=== PATIENT | female | born 1960 | race Caucasian/White ===

== ENCOUNTER → 2018-03-25 | Outpatient (CLI) | payer BC ==
--- NOTE | 2018-03-25 15:15 | CT ---
EXAMINATION TYPE: CT chest w con DATE OF EXAM: 03/25/2018 COMPARISON: Chest x-ray from 2 weeks ago. HISTORY: Occasional shortness of breath per patient. Mid intermittent asthma per order. CT DLP: 268.1 mGycm Automated exposure control for dose reduction was used. CONTRAST: CT scan of the chest is performed with IV Contrast, patient injected with 100 mL of Isovue 300. FINDINGS: LUNGS: Some dependent atelectasis is seen in both lower lobes. No suspicious consolidation or ground glass opacity is seen. No concerning parenchymal nodule or mass is identified. There is no pleural ef fusion or pneumothorax seen. The tracheobronchial tree is patent. MEDIASTINUM: There are no greater than 1 cm hilar or mediastinal lymph nodes. No cardiomegaly or pe ricardial effusion is seen. OTHER: No additional significant abnormality is seen. IMPRESSION: No suspicious acute or chronic pulmonary process.
== END | disposition home or self-care (01) ==
LOC: RADCTMAIN 11:57
PROVIDERS: ATTEND Internal Medicine
DX: J45.20 Mild intermittent asthma, uncomplicated (principal); R94.2 Abnormal results of pulmonary function studies
CPT/HCPCS: 71260; Q9967

== ENCOUNTER 2018-04-17 10:24 | Day surgery (SDC) | payer BC ==
[2018-04-16 09:00] VITALS: BMI 25.8
[~2018-04-17 10:24] MED LIST: LACTATED RINGERS 1,000 ML IV SCH; Pre Op ABX Message 1 EACH MISC MISCELLANE ONE
[2018-04-17 11:50] VITALS: TEMP 98
[2018-04-17] MEDS ORDERED: LIDOCAINE 1% 20 ML VIAL (10MG/ML) FOR IV START INTRADERMA ONE (11:51)
[2018-04-17] MEDS ORDERED: LIDOCAINE 1% INJ 10MG/ML (20 ML MDV) ONE (12:01)
[2018-04-17] MEDS ORDERED: MIDAZOLAM 2 MG/2 ML VIAL ONE (12:01)
[2018-04-17] MEDS ORDERED: PROPOFOL 10 MG/ML 20 ML VIAL IV ONE (12:01)
[2018-04-17] MEDS ORDERED: KETAMINE 10 MG/ML 20 ML VIAL ONE (12:01)
[2018-04-17] MEDS ORDERED: LIDOCAINE 2% INJ 20 MG/ML INTRATRACH ONE (12:30)
[2018-04-17 13:02] VITALS: BP 114/63; PULSE 58; RESP 18
[2018-04-17 16:29] LABS: Appearance,BF Hazy; Color,BF Colorless
--- NOTE | 2018-04-17 17:24 | PCN ---
PROCEDURE NOTE PROCEDURE PERFORMED: Bronchoscopy and right middle lobe washing. PREOPERATIVE DIAGNOSIS: Chronic cough and abnormal flow volume loop. ANESTHESIA USED: IV conscious sedation, please refer to [employer] REPRESENT[employer]IVE documentation. PROCEDURE: Patient was prepared according to the bronchoscopy protocol. O2 was applied via nasal cannula. We monitored her O2 saturation continuously, blood pressure was intermittently monitored, and cardiac rhythm was continuously monitored. After adequate IV conscious sedation, a few mL of lidocaine were instilled into the left naris, and the bronchoscope was inserted into the left naris. Bronchoscope was advanced further down to the area of the vocal cords. Vocal cords were visualized, they were basically normal, however, there was some prominence of the corniculate cartilage, otherwise the remaining portion of the vocal cords was noted to be normal. Lidocaine was applied over the vocal cords, and the bronchoscope was advanced further down to the trachea, the trachea was noted to be normal, no evidence of any endotracheal pathology. Yaneth was normal. Thorough examination was done of the right upper lobe, right middle lobe, right lower lobe, left upper lobe lingula and left lower lobe. There was no evidence of any significant abnormality down in the airways. The washing of the right middle lobe was done, the fluid was sent for cultures. The procedure was well tolerated, no evidence of any immediate complications. The only finding noted is the abnormalities or slight prominence of the corniculate cartilage at the base of the vocal cords. MMODL / IJN: [id number] /
[2018-04-17 19:01] LABS: Nucleated Cells, Body Fluid 20 /uL; RBC, Body Fluid 60 /uL
[2018-04-17 19:25] LABS: Mononuclear WBC,Body Fluid 18 %; Polynuclear WBC,Body Fluid 82 %; Total Cells Counted,Body Fluid 100
== END 2018-04-17 13:17 | disposition home or self-care (01) ==
LOC: ORWHC2ENDO 10:24
PROVIDERS: ATTEND Internal Medicine
DX: R05 Cough (principal); R94.2 Abnormal results of pulmonary function studies; E03.9 Hypothyroidism, unspecified; D64.9 Anemia, unspecified; K21.9 Gastro-esophageal reflux disease without esophagitis; Z80.0 Family history of malignant neoplasm of digestive organs; J45.909 Unspecified asthma, uncomplicated; Z79.890 Hormone replacement therapy; Z79.51 Long term (current) use of inhaled steroids; Z79.899 Other long term (current) drug therapy; Z91.09 Other allergy status, other than to drugs and biological substances
CPT/HCPCS: 87798 ×3; 87496; 87498; 87529; 89050; 87252; 87502; 87634; 87070; 87205; 31622; J2001 ×2; J2250; J2704; 31624